=== PATIENT | male | born 1980 | race African-American/Black ===

== ENCOUNTER → 2019-09-21 | Day surgery (SDC) | payer OTHER ==
[~2019-09-21] MED LIST: ACYCLOVIR PO; AUGMENTIN 875-1 EACH PO; CARAFATE PO; FENTANYL CITRATE/PF 100MCG/2 ML INJ ONE; IBUPROFE PO; LIDO PO; LIDOCAINE HCL 2% LOCAL INJ 5 ML SDV VIAL INJ ONE; LORTAB PO; LOVENOX40 MG/0.4 SQ; MIDAZOLAM HCL 2 MG/2 ML VIAL ONE; NORCO 7.5-3251 EACH PO; PREDNISOLO PO; PREDNISOLONE PO; PROPOFOL IV EMULSION 10 MG/ML 50 ML VIAL ONE; SUCRALFATE PO; [UNRECOGNIZED DRUG - OTHER] PO; walker with wheels
[2019-09-21 12:50] VITALS: BP 142/99
== END | disposition home or self-care (01) ==
LOC: OR 09:20
PROVIDERS: ATTEND Internal Medicine
DX: R19.7 Diarrhea, unspecified (principal); D12.7 Benign neoplasm of rectosigmoid junction; D12.5 Benign neoplasm of sigmoid colon; K29.50 Unspecified chronic gastritis without bleeding; K92.1 Melena; Z80.0 Family history of malignant neoplasm of digestive organs; R11.2 Nausea with vomiting, unspecified; F10.10 Alcohol abuse, uncomplicated; Z01.810 Encounter for preprocedural cardiovascular examination
CPT/HCPCS: 43239; 45380; 45385; 93005; J2001; J2250; J2704; J3010; 45378